=== PATIENT | male | born 1980 | race Caucasian/White ===

== ENCOUNTER 2022-09-09 21:55 | Inpatient (IN) ==
[2022-09-09 23:11] LABS: Urine Benzodiazepine Screen Presumptive Positive (None Detect); Urine Cannabinoids Screen Presumptive Positive (None Detect); Urine Opiates Screen None Detected (None Detect)
[2022-09-09] MEDS ORDERED: Nicotine PATCH 21 MG/24 HR PATCH TRANSDERM ONE (23:55)
[2022-09-10 00:38] LABS: ABS Basophils 0.1 10^3/uL (0.0-0.1); ABS Eosinophils 0.1 10^3/uL (0.0-0.5); ABS Monocytes 0.7 10^3/uL (0.0-1.1); ABS Neutrophils 4.7 10^3/uL (1.5-7.6); Eosinophil % 1.7 %; Hematocrit 38.5 % (38-53); Hemoglobin 13.4 g/dL (13.2-16.3); Lymphocyte % 26.6 %; Mean Corpuscular Hemoglobin 30.2 pg (27-33); Mean Corpuscular Hgb Conc 34.8 g/dL (31-36); Mean Corpuscular Volume 86.6 fL (80-97); Mean Platelet Volume 7.4 fL (7.5-11.2); Platelet Count 297 10^3/uL (150-450); Red Blood Count 4.45 10^6/uL (4.06-5.63); Red Cell Distribution Width 13.6 % (12-17); White Blood Count 7.6 10^3/uL (3.6-10.2)
[2022-09-10 00:53] LABS: ALT 24 U/L (7-52); AST 21 U/L (13-39); Albumin 4.9 g/dL (3.2-5.2); Albumin/Globulin Ratio 1.8 (1-3); Alkaline Phosphatase 98 U/L (35-149); Anion Gap 7 mmol/L (2-16); Blood Urea Nitrogen 30 mg/dL (6-24); CO2 Carbon Dioxide 22 mmol/L (22-32); Calcium 10.3 mg/dL (8.6-10.3); Chloride 105 mmol/L (101-111); Globulin 2.8 g/dL (2-4); Glucose 99 mg/dL (70-100); Potassium 3.9 mmol/L (3.5-5.0); Sodium 134 mmol/L (135-145); Total Protein 7.7 g/dL (6.4-8.9); eGFR CKD-EPI 109.4 (>60)
[2022-09-10 01:24] LABS: Acetaminophen < 15 mcg/mL; Alcohol, S < 13 mg/dL (<13); Salicylate < 2.50 mg/dL (<30)
[2022-09-10 01:39] LABS: TSH Ultra Thyroid Stim Horm 1.72 mcIU/mL (0.34-5.60)
[2022-09-10 02:06] LABS: Urine Appearance Clear; Urine Bilirubin Negative (Negative); Urine Blood 2+ (Negative); Urine Color Straw; Urine Glucose Negative (Negative); Urine Ketones Negative (Negative); Urine Nitrite Negative (Negative); Urine Protein Negative (Negative); Urine Specific Gravity 1.006 (1.002-1.030); Urine Urobilinogen Negative (Negative)
[2022-09-10 02:08] LABS: Urine Amorphous Crystals Present (Absent); Urine Bacteria Absent (Absent); Urine Red Blood Cell Trace(0-2/hpf) (Absent); Urine White Blood Cell Absent (Absent)
[2022-09-10 02:22] LABS: Urine Benzodiazepine Screen Presumptive Positive (None Detect); Urine Cannabinoids Screen Presumptive Positive (None Detect); Urine Opiates Screen None Detected (None Detect)
[2022-09-10] MEDS ORDERED: Al Hydrox/Mg Hydrox/Simet LIQ 30 ML UDC PO PRN (03:26)
[2022-09-10] MEDS: Vitamin THERAPEUTIC TAB PO SCH (10:01)
[2022-09-10] MEDS: Nicotine GUM 2MG FRUIT FLAVOR PO PRN ×2 (12:38→17:49)
[2022-09-10] MEDS ORDERED: Valsartan/HCTZ 160/12.5(NF) TAB PO SCH (13:00)
[2022-09-11] MEDS: Nicotine PATCH 21 MG/24 HR PATCH TRANSDERM SCH (07:22)
[2022-09-11] MEDS: Vitamin THERAPEUTIC TAB PO SCH (07:22)
[2022-09-12] MEDS: Vitamin THERAPEUTIC TAB PO SCH (07:45)
[2022-09-12] MEDS: Nicotine PATCH 21 MG/24 HR PATCH TRANSDERM SCH (07:49)
[2022-09-12 08:46] LABS: HDL Cholesterol 55.3 mg/dL
[2022-09-12 10:28] VITALS: BP 141/79
[2022-09-12] MEDS: Nicotine GUM 2MG FRUIT FLAVOR PO PRN (11:50)
== END 2022-09-12 15:35 | disposition home or self-care (01) | DRG 755 ==
LOC: ED 21:55 → EDHOLD 09-10 01:51 → BSU 09-10 03:10
PROVIDERS: ADMIT Psychiatry & Neurology Psychiatry; ATTEND Psychiatry & Neurology Psychiatry